=== PATIENT | male | born 1940 | race Caucasian/White ===

== ENCOUNTER 2017-09-21 09:58 | Outpatient (CLI) | payer MEDICARE, BC ==
--- NOTE | 2017-09-21 11:29 | MRI ---
MRI LEFT SHOULDER WITHOUT CONTRAST: Date: 09/21/17 HISTORY: M67.912, disorder of left rotator cuff. Pain for 4-5 months with decreased range of motion. COMPARISON: None. FINDINGS: Biceps Tendon: Extraarticular biceps tendon is unremarkable. Intraarticular biceps tendon is also unremarkable. Glenoid Labrum: Degeneration of anterior inferior labrum with subsequent glenoid osteophyte formation. There is also degeneration of the posterior inferior labrum with increased fluid signal. Mild degenerative signal i n the superior labrum. Rotator Cuff: There is a high grade bursal surface tear of the anterior 11 mm supraspinatus tendon from the footpri nt approximately 75% thickness. The gap between the bursal surface fibers and the footplate is approx imately 1.0 cm. There is moderate tendinosis in the remainder of the fibers. Mild tendinosis of the i nfraspinatus tendon. The subscapularis is intact. Soft Tissues: Moderate subacromial/subdeltoid bursal effusion. 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 This causes fraying of the supraspinatus tendon. Cartilage: There is a 25-50% cartilage loss throughout the glenohumeral joint. Muscles: The muscle signal and bulk is normal. IMPRESSION: 1. 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 There is subsequent high grade bursal surface tear anterior 11 mm supraspinatus tendon, ap proximately 75% thickness from the footplate with fibers retracted 1.0 cm. 2. Moderate subacromial/subdeltoid bursal effusion. 3. Degeneration of the labrum withy subsequent small osteophyte formation of the glenoid. 4. No significant muscle atrophy. POS: [facility]
== END 2017-09-21 09:59 | disposition home or self-care (01) ==
LOC: SCSMRI 09:58
PROVIDERS: ATTEND Family Medicine
DX: M67.912 Unspecified disorder of synovium and tendon, left shoulder (principal); M75.102 Unspecified rotator cuff tear or rupture of left shoulder, not specified as traumatic; M25.412 Effusion, left shoulder

== ENCOUNTER 2018-11-12 08:30 | Outpatient (CLI) | payer MEDICARE, BC ==
--- NOTE | 2018-11-12 10:30 | MRI ---
MRI CERVICAL SPINE WITHOUT IV CONTRAST: HISTORY: M54.12, cervical radiculopathy. Chronic neck pain. TECHNIQUE: Multiplanar, multisequence MRI examination of the cervical spine is performed. Severe motion artifac t results in marked image degradation. Generalized disk desiccation changes and ligament and facet hypertrophic changes. Visualized lower b rain and soft tissue neck appear unremarkable. C2-C3: Mild left foraminal stenosis. C3-C4: Mild bilateral foraminal stenosis. C4-C5: Bilateral foraminal stenosis, worse on the left side. C5-C6: Uncovertebral changes with mild disk osteophytosis and mild lateral recess stenosis and evide nce for bilateral foraminal stenosis, worse on the left side. C6-C7: Broad-based central disk osteophyte with mild central canal and moderate lateral recess steno sis and moderate to severe bilateral foraminal stenosis. C7-T1: Unremarkable. No spinal cord mass or clarence spinal cord compression. 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 POS: [facility]
== END 2018-11-12 08:31 | disposition home or self-care (01) ==
LOC: SCSMRI 08:30
PROVIDERS: ATTEND Family Medicine
DX: M54.12 Radiculopathy, cervical region (principal); M48.02 Spinal stenosis, cervical region
CPT/HCPCS: 72141

== ENCOUNTER 2020-10-05 11:26 | Outpatient (CLI) | payer MEDICARE, BC | END 2020-10-05 11:27 | disposition home or self-care (01) | LOC: SCSRAD 11:26 | PROVIDERS: ATTEND Family Medicine | DX: R05 Cough (principal) | CPT/HCPCS: 71046 ==

== ENCOUNTER 2023-05-07 10:33 | Outpatient (CLI) | payer MEDICARE, BC | END 2023-05-07 10:34 | disposition home or self-care (01) | LOC: LABBT 10:33 | PROVIDERS: ATTEND Orthopaedic Surgery | DX: Z01.818 Encounter for other preprocedural examination (principal); M17.0 Bilateral primary osteoarthritis of knee | CPT/HCPCS: 71046; 93005; 93010 ==

== ENCOUNTER 2023-05-11 06:38 | Observation (INO) | payer MEDICARE, BC ==
[2023-05-07 11:43] VITALS: BMI 33.7
[2023-05-07 12:46] LABS: Bilirubin Neg (Negative); Blood, Urine 25 (Negative); Clarity Clear (Clear); Glucose, Urine (Dipstick) Normal (Negative); Ketone, Urine Negative (Negative); Leukocyte Negative (Negative); Nitrite Negative (Negative); Protein, Urine (Dipstick) Negative (Neg-Trace); Urobilinogen Normal mg/dL (Less than 2)
[2023-05-07 12:50] LABS: #Basophils 0.1 10x3/uL (0.0-0.2); #Eosinphils 0.4 10x3/uL (0.0-0.5); #Monocytes 0.6 10x3/uL (0.0-1.1); #Neutrophils 2.8 10x3/uL (1.5-8.4); %Basophils 0.8 % (0.0-2.0); %Eosinophils 5.7 % (0.0-6.0); %Lymphocytes 37.3 % (18.0-47.0); %Monocytes 10.1 % (0.0-10.0); %Neutrophils 46.1 % (40.0-75.0); Hematocrit 44.8 % (38.8-50.0); Hemoglobin 15.1 g/dL (13.5-17.5); Mean Corpuscular HGB CONC 33.7 g/dL (32.0-36.0); Mean Corpuscular Hemoglobin 28.3 pg (27.0-33.0); Mean Corpuscular Volume 83.9 fl (81.2-95.1); Mean Platelet Volume 11.2 fl (7.4-10.4); Platelet Count 212 10x3/uL (150-450); RBC Distribution Width 13.2 % (11.5-14.5); Red Blood Cell (RBC) Count 5.34 10x6/uL (4.32-5.72); White Blood Cell (WBC) Count 6.1 10x3/uL (3.5-10.5)
[2023-05-07 13:13] LABS: Anion Gap 14 mmol/L (10-20); BUN (Urea Nitrogen) 15 mg/dL (8.4-25.7); Calc. Creatinine Clearance 0 mL/min (70-130); Calcium 9.7 mg/dL (7.8-10.44); Carbon Dioxide 26 mmol/L (23-31); Chloride 104 mmol/L (98-107); Estimated GFR 86; Glucose 116 mg/dL (83-110); Sodium 139 mmol/L (136-145)
[2023-05-07 13:16] LABS: Prothrombin Time 10.3 sec (9.5-12.1)
[2023-05-11] MEDS ORDERED: Sodium Chloride 0.9% 100 ML ONE ×2 (08:01→09:32)
[2023-05-11] MEDS ORDERED: Vancomycin (BATCH) 1.5 GM/300 ML BAG ONE (08:01)
[2023-05-11] MEDS ORDERED: Tranexamic Acid 1,000 MG/10 ML VIAL ONE ×2 (08:01→11:54)
[2023-05-11] MEDS ORDERED: Bupivacaine 0.25% HCL 30 ML VIAL ONE (08:15)
[2023-05-11] MEDS ORDERED: Lidocaine 1% (PF) 30 ML VIAL ONE (08:15)
[2023-05-11] MEDS ORDERED: methylPREDNISolone Acetate 40 mg/ml Vial ONE (08:15)
[2023-05-11] MEDS ORDERED: Midazolam HCl 2 mg/2 ml Vial ONE (08:18)
[2023-05-11] MEDS ORDERED: fentaNYL 50 mcg/mL 1 mL Vial ONE ×2 (08:18→11:36)
[2023-05-11] MEDS ORDERED: Bupivacaine PF 0.5% 30 ML VIAL ONE (08:18)
[2023-05-11] MEDS ORDERED: fentaNYL PF 100 MCG/2 ML SYRINGE ONE (09:16)
[2023-05-11] MEDS ORDERED: Bupivacaine HCl 0.5%/Epinephrine 1:200,000/PF 30 ml Vial ONE (09:20)
[2023-05-11] MEDS ORDERED: fentaNYL 50 mcg/mL 1 mL Vial SLOW IVP PRN (09:32)
[2023-05-11] MEDS ORDERED: CEFAZOLIN 2 GM VIAL ONE (09:32)
[2023-05-11] MEDS ORDERED: traMADol HCl 50 MG TAB PO PRN ×2 (09:45)
[2023-05-11] MEDS ORDERED: Ropivacaine 0.2% 550 ML 550 ML NERVE BLCK SCH (09:45)
[2023-05-11] MEDS ORDERED: Promethazine HCl 25 MG/ML VIAL IM PRN ×2 (09:45→11:24)
[2023-05-11] MEDS ORDERED: Ondansetron PF 4 MG/2 ML Vial IVP PRN ×2 (09:45→11:24)
[2023-05-11] MEDS ORDERED: HYDROcodone/Acetaminophen 10/325 mg Tablet PO PRN (09:45)
[2023-05-11] MEDS ORDERED: Zolpidem Tartrate 5 MG TAB PO PRN ×2 (09:45→11:24)
[2023-05-11] MEDS ORDERED: Dexamethasone 20 MG/5 ML VIAL ONE (09:48)
[2023-05-11] MEDS ORDERED: Lidocaine 1% PF 5 ML VIAL ONE (09:48)
[2023-05-11] MEDS ORDERED: PROPOFOL 200 MG/20 ML VIAL ONE (09:48)
[2023-05-11] MEDS ORDERED: Ondansetron PF 4 MG/2 ML Vial ONE (09:48)
[2023-05-11] MEDS ORDERED: Ketorolac Tromethamine 30 MG/ML VIAL ONE ×2 (09:48→11:53)
[2023-05-11] MEDS ORDERED: diphenhydrAMINE 25 MG CAP PO PRN (11:24)
[2023-05-11] MEDS ORDERED: Acetaminophen 325 MG TAB PO PRN (11:24)
[2023-05-11] MEDS ORDERED: Tranexamic Acid 1,000 MG in Sodium Chloride 0.9% 100 ML IVPB SCH (11:30)
[2023-05-11] MEDS ORDERED: Meperidine HCl/PF 25 MG/ML VIAL ONE (11:36)
[2023-05-11] MEDS: Ketorolac Tromethamine 30 MG/ML VIAL IVP SCH ×3 (11:56→23:58)
[2023-05-11] MEDS: Sodium Chloride 0.9% 1,000 ML IV SCH (13:31)
[2023-05-11] MEDS: CEFAZOLIN 2 GM in Sodium Chloride 0.9% 100 ML IVPB SCH (17:09)
[2023-05-11] MEDS ORDERED: Vancomycin (BATCH) 1.5 GM in Premix 1 BAG IVPB SCH (20:00)
[2023-05-11] MEDS: Senokot S 8.6-50 MG TAB PO SCH (20:15)
[2023-05-11] MEDS: Ferrous Gluconate 324 MG TAB PO SCH (20:16)
[2023-05-11] MEDS: Aspirin 81 mg Enteric Coated Tablet PO SCH (20:16)
[2023-05-11] MEDS ORDERED: Rosuvastatin 20 MG TAB PO SCH (21:00)
[2023-05-12] MEDS: Sodium Chloride 0.9% 1,000 ML IV SCH ×2 (00:01→10:08)
[2023-05-12] MEDS: CEFAZOLIN 2 GM in Sodium Chloride 0.9% 100 ML IVPB SCH (02:40)
[2023-05-12 05:19] LABS: Hematocrit 35.1 % (42.0-52.0); Mean Corpuscular HGB CONC 34.2 g/dL (32.0-36.0); Mean Corpuscular Hemoglobin 28.8 pg (27.0-31.0); Mean Corpuscular Volume 84.4 fl (78.0-98.0); Mean Platelet Volume 11.1 fL (7.4-10.4); Platelet Count 160 10x3/uL (130-400); RBC Distribution Width 12.9 % (11.5-14.5); Red Blood Cell (RBC) Count 4.16 mill/uL (4.70-6.10); White Blood Cell (WBC) Count 9.3 10x3/uL (4.8-10.8)
[2023-05-12] MEDS: Ketorolac Tromethamine 30 MG/ML VIAL IVP SCH ×2 (06:11→12:14)
[2023-05-12] MEDS ORDERED: Multivitamin W/ Minerals 1 TAB PO SCH (09:00)
[2023-05-12] MEDS ORDERED: FLU VACC QS2023(65UP)/MF59C/PF 60 MCG/0.5 ML SYRINGE IM ONE (09:00)
[2023-05-12] MEDS ORDERED: Losartan 25 MG TAB PO SCH (09:00)
[2023-05-12] MEDS ORDERED: Aspirin 325 MG TAB PO SCH (09:00)
[2023-05-12] MEDS ORDERED: Donepezil HCl 5 MG TAB PO SCH (09:00)
[2023-05-12] MEDS ORDERED: Polyethylene Glycol 3350 17 GM Packet PO SCH (09:00)
[2023-05-12] MEDS: Aspirin 81 mg Enteric Coated Tablet PO SCH (10:06)
[2023-05-12] MEDS: Ferrous Gluconate 324 MG TAB PO SCH (10:06)
[2023-05-12] MEDS: Senokot S 8.6-50 MG TAB PO SCH (10:06)
[2023-05-12 16:22] VITALS: BP 128/56; TEMP 98.4
== END 2023-05-12 17:14 | disposition home or self-care (01) ==
LOC: SDC 06:38 → SJJU 11:24
PROVIDERS: ADMIT Orthopaedic Surgery; ATTEND Orthopaedic Surgery
PROC: 0SRD0JZ Replacement of Left Knee Joint with Synthetic Substitute, Open Approach (ICD-10-PCS; principal; 2023-05-11)
PROC: 0S9C30Z Drainage of Right Knee Joint with Drainage Device, Percutaneous Approach (ICD-10-PCS; 2023-05-11)
DX: M17.0 Bilateral primary osteoarthritis of knee (principal); I25.10 Atherosclerotic heart disease of native coronary artery without angina pectoris; C61 Malignant neoplasm of prostate; E11.9 Type 2 diabetes mellitus without complications; E78.5 Hyperlipidemia, unspecified; Z86.010 Personal history of colon polyps; Z87.19 Personal history of other diseases of the digestive system; Z90.49 Acquired absence of other specified parts of digestive tract; Z95.5 Presence of coronary angioplasty implant and graft; Z98.49 Cataract extraction status, unspecified eye; Z98.890 Other specified postprocedural states; Z79.899 Other long term (current) drug therapy; Z90.89 Acquired absence of other organs; Z88.8 Allergy status to other drugs, medicaments and biological substances; Z88.5 Allergy status to narcotic agent; Z01.818 Encounter for other preprocedural examination
CPT/HCPCS: 20610; 27447; 71046; 80048; 81003; 85025; 85027; 85610; 86850; 86900; 86901; 87081; 90694; 93005; 97110 ×2; 97116 ×2; 97530; A4306; C1776; G0008; J3010; J3370; 36415; 90471; 93010; J1030; J1100; J1885; J2001; J2175; J2250; J2405; J2704; J2795; J3490; S0020